=== PATIENT | male | born 1975 ===

== ENCOUNTER 2017-04-30 20:22 | Emergency (ER) | payer MEDICAID ==
[2017-04-30 20:23] VITALS: BMI 29.6
[2017-04-30 20:29] VITALS: TEMP 98.2
[2017-04-30] MEDS ORDERED: Lidocaine 5% Patch TD STA (20:47)
[2017-04-30] MEDS ORDERED: Oxycodone/Acetaminophen 5/325 mg Tab PO STA (20:47)
--- NOTE | 2017-04-30 20:51 | ED PDOC ---
Arrival/HPI - General Chief Complaint: Back Pain Time Seen by Provider: 04/30/17 20:39 Historian: Patient - History of Present Illness Narrative History of Present Illness (Text): 04/30/17 20:48 41 y /o male, pmh including chronic neck and back pain with Disc bulging at L2L3 , nkda, c/o lower back pain started again yesterday and here for the pain management. Pt. stated that he suffers from chronic neck and back pain, no new injury or fall, started to have pain yesterday, no pain medication taken at home , scheduled to see the neurologist next week but can not be seen today, seen at the ER 11/[address] thoracic and lumbar spine show mild disc bulge L2L3 but didn't have any specialist follow up, no urinary or bowel incontinence retention , no urinary symptoms, no other medical or psychological complaints. Past Medical History - Provider Review Nursing Documentation Reviewed: Yes - Infectious Disease Hx of Infectious Diseases: None - Tetanus Immunization Tetanus Immunization: Up to Date (less than 1 yrs ago) - Past Medical History Past Medical History: No Previous - Cardiac Hx Hypertension: No Hx Pacemaker: No - Pulmonary Hx Asthma: No Hx Chronic Obstructive Pulmonary Disease (COPD): No Hx Emphysema: No - Neurological Hx Dementia: No Hx Seizures: No - HEENT Hx HEENT Disorder: No - Renal Hx Renal Disorder: No - Endocrine/Metabolic Hx Endocrine Disorders: No - Hematological/Oncological Hx Anemia: No - Integumentary Hx Dermatological Disorder: No - Musculoskeletal/Rheumatological Hx Musculoskeletal Disorders: No - Gastrointestinal Hx Gastrointestinal Disorders: No - Genitourinary/Gynecological Hx Genitourinary Disorders: No - Psychiatric Hx Depression: No Hx Substance Use: No - Past Surgical History Past Surgical History: No Previous - Surgical History Hx Gastric Bypass Surgery: No - Anesthesia Hx Anesthesia: No Hx Anesthesia Reactions: No Hx Malignant Hyperthermia: No - Suicidal Assessment Feels Threatened In Home Enviroment: No Family/Social History - Physician Review Nursing Documentation Reviewed: Yes Family/Social History: Unknown Family HX Smoking Status: Never Smoked Hx Alcohol Use: No Hx Substance Use: No Hx Substance Use Treatment: No Allergies/Home Meds Allergies/Adverse Reactions: Allergies No Known Allergies Allergy (Verified 12/20/16 16:24) Review of Systems - Review of Systems Constitutional: absent: Fatigue, Fevers Eyes: absent: Vision Changes ENT: absent: Hearing Changes Respiratory: absent: SOB, Cough Cardiovascular: absent: Chest Pain Gastrointestinal: absent: Abdominal Pain, Nausea, Vomiting Musculoskeletal: Back Pain. absent: Arthralgias, Neck Pain, Joint Swelling, Myalgias Neurological: absent: Headache, Dizziness, Focal Weakness, Gait Changes, Speech Changes, Facial Droop Physical Exam Vital Signs Reviewed: Yes Vital Signs Temp Pulse Resp BP Pulse Ox 04/30/17 21:31 72 16 142/87 100 04/30/17 20:24 98.2 F 99 H 18 158/90 H 98 Temperature: Afebrile Blood Pressure: Hypertensive Pulse: Regular Respiratory Rate: Normal Appearance: Positive for: Well-Appearing, Non-Toxic Pain Distress: Severe Mental Status: Positive for: Alert and Oriented X 3 - Systems Exam Head: Present: Atraumatic, Normocephalic Pupils: Present: PERRL Extroacular Muscles: Present: EOMI Conjunctiva: Present: Normal Mouth: Present: Moist Mucous Membranes Neck: Present: Normal Range of Motion. No: Meningeal Signs, MIDLINE TENDERNESS , Paraspinal Tenderness Respiratory/Chest: Present: Clear to Auscultation, Good Air Exchange. No: Respiratory Distress, Accessory Muscle Use Cardiovascular: Present: Regular Rate and Rhythm, Normal S1, S2. No: Murmurs Abdomen: Present: Normal Bowel Sounds. No: Tenderness, Distention, Peritoneal Signs Back: Present: Normal Inspection, Other (Thoracic to LS spine: no midline tenderness or step off, no paraspinal tenderness, FROM without limitation, walking with normal gait and posture, no focal neurological deficits, bilateral lower extremities motor 5/5. ) Upper Extremity: Present: Normal Inspection, Other (bilateral upper extremities motor 5/5, sensation intact. ). No: Cyanosis, Edema Lower Extremity: Present: Normal Inspection. No: Edema Neurological: Present: GCS=15, CN II-XII Intact, Speech Normal Skin: Present: Warm, Dry, Normal Color. No: Rashes Psychiatric: Present: Alert, Oriented x 3, Normal Insight, Normal Concentration Medical Decision Making ED Course and Treatment: 04/30/17 20:51 -Toradol/flexeril/percocet and lidoderm patch -There is no emergent indication of the labs/radiology studies. 04/30/17 21:59 -Pt. stated that he feels better, wants to go home without further evaluation as he will see his own specialist and pmd. -Discharge home with mobic, flexeril, lidoderm, heat compression, follow up with your own pmd and specialist within2 days, return to the ER for any new or worsening signs or symptoms. - Medication Orders Current Medication Orders: Discontinued Medications Cyclobenzaprine HCl (Flexeril) 10 mg PO STAT STA Stop: 04/30/17 20:48 Last Admin: 04/30/17 21:39 Dose: 10 mg Ketorolac Tromethamine (Toradol) 60 mg IM STAT STA Stop: 04/30/17 20:48 Last Admin: 04/30/17 21:39 Dose: 60 mg Lidocaine (Lidoderm) 1 ea TD STAT STA Stop: 04/30/17 20:48 Last Admin: 04/30/17 21:39 Dose: 1 ea Oxycodone/Acetaminophen (Percocet 5/325 Mg Tab) 1 tab PO STAT STA Stop: 04/30/17 20:48 Last Admin: 04/30/17 21:39 Dose: 1 tab - PA / GEOSPATIAL IMAGERY INTELLIGENCE ANALYST / Resident Statement / has reviewed & agrees with the documentation as recorded. Disposition/Present on Arrival - Present on Arrival Any Indicators Present on Arrival: No History of DVT/PE: No History of Uncontrolled Diabetes: No Urinary Catheter: No History of Decub. Ulcer: No History Surgical Site Infection Following: None - Disposition Have Diagnosis and Disposition been Completed?: Yes Diagnosis: Chronic back pain Disposition: HOME/ ROUTINE Disposition Time: 22:00 Patient Plan: Discharge Condition: IMPROVED Additional Instructions: Discharge home with mobic, flexeril, lidoderm, heat compression, follow up with your own pmd and specialist within2 days, return to the ER for any new or worsening signs or symptoms. Prescriptions: Cyclobenzaprine [Cyclobenzaprine HCl] 10 mg PO TID PRN #21 tab PRN Reason: Other Lidocaine 5% [Lidoderm] 1 patch TOP DAILY PRN #14 patch PRN Reason: Other Meloxicam [Mobic] 15 mg PO DAILY PRN #14 tab PRN Reason: Other Referrals: Luna Zamora DO [Primary Care Provider] - Follow up with primary Jacek Read MD [Staff Provider] - Follow up with primary Logan Jeff MD [Staff Provider] - Follow up with primary Martínez Grimm MD [Staff Provider] - Follow up with primary Forms: WORK NOTE
[2017-04-30 21:32] VITALS: BP 142/87; PULSE 72; RESP 16; O2SAT 100
== END 2017-04-30 22:17 | disposition home or self-care (01) ==
LOC: ED 20:22
DX: M54.9 Dorsalgia, unspecified (principal); G89.29 Other chronic pain
CPT/HCPCS: 96372; 99283; J1885

== ENCOUNTER 2017-05-21 19:38 | Emergency (ER) | payer MEDICAID ==
[2017-05-21 19:47] VITALS: BMI 29.2
[2017-05-21 19:52] VITALS: TEMP 97.8
[2017-05-21] MEDS ORDERED: TraMADol/Apap 37.5/325 mg Tab PO STA (20:53)
--- NOTE | 2017-05-21 20:57 | ED PDOC ---
Arrival/HPI - General Chief Complaint: Pain, Chronic Time Seen by Provider: 05/21/17 19:52 Historian: Patient - History of Present Illness Narrative History of Present Illness (Text): 05/21/17 20:00 A 41 year old male, whose past medical history includes L2-L3 lumbar disc disease, presents to the emergency department complaining of back pain which is consistent with chronic back pain. Patient states over the past one month he has been feeling intermittent numbness and tingling to the 3rd, 4th, and 5th right toes. Patient also complains of right wrist and right elbow pain with numbness and tingling down to the hand for the past 1 month. Patient notes he has an appoint with his neurologist pn 06/04/17. Patient denies any new trauma, bowel/urinary incontinence, abdominal pain, nausea, vomiting or any other complaints at this time. PMD: Dr. Zamora Time/Duration: Other (1 month) Symptom Onset: Other Symptom Course: Intermittent Quality: Other Activities at Onset: Rest Context: Home Past Medical History - Provider Review Nursing Documentation Reviewed: Yes - Infectious Disease Hx of Infectious Diseases: None - Tetanus Immunization Tetanus Immunization: Up to Date (less than 1 yrs ago) - Past Medical History Past Medical History: No Previous - Cardiac Hx Cardiac Disorders: No Hx Hypertension: No Hx Pacemaker: No - Pulmonary Hx Asthma: No Hx Chronic Obstructive Pulmonary Disease (COPD): No Hx Emphysema: No - Neurological Hx Dementia: No Hx Seizures: No - HEENT Hx HEENT Disorder: No - Renal Hx Renal Disorder: No - Endocrine/Metabolic Hx Endocrine Disorders: No - Hematological/Oncological Hx Anemia: No - Integumentary Hx Dermatological Disorder: No - Musculoskeletal/Rheumatological Hx Musculoskeletal Disorders: No - Gastrointestinal Hx Gastrointestinal Disorders: No - Genitourinary/Gynecological Hx Genitourinary Disorders: No - Psychiatric Hx Psychophysiologic Disorder: Yes Hx Anxiety: Yes Hx Depression: Yes Hx Substance Use: No - Past Surgical History Past Surgical History: No Previous - Surgical History Hx Gastric Bypass Surgery: No - Anesthesia Hx Anesthesia: No Hx Anesthesia Reactions: No Hx Malignant Hyperthermia: No - Suicidal Assessment Feels Threatened In Home Enviroment: No Family/Social History - Physician Review Nursing Documentation Reviewed: Yes Family/Social History: Unknown Family HX Smoking Status: Never Smoked Hx Alcohol Use: No Hx Substance Use: No Hx Substance Use Treatment: No Allergies/Home Meds Allergies/Adverse Reactions: Allergies No Known Allergies Allergy (Verified 05/21/17 19:47) Home Medications: Home Meds Medication Instructions Recorded Confirmed Escitalopram [Lexapro] 10 mg PO DAILY 05/21/17 05/21/17 QUEtiapine [SEROquel] 300 mg PO HS 05/21/17 05/21/17 buPROPion [Wellbutrin] 300 mg PO DAILY 05/21/17 05/21/17 busPIRone [Buspar] 10 mg PO TID 05/21/17 05/21/17 hydrOXYzine Pamoate [Vistaril] 50 mg PO HS 05/21/17 05/21/17 Review of Systems - Review of Systems Constitutional: absent: Fevers Gastrointestinal: absent: Abdominal Pain, Nausea, Vomiting Genitourinary Male: absent: Dysuria Musculoskeletal: Back Pain Neurological: Other (numbness and tingle to the right 3rd and 4th toe; numbness and tingle with pain to the rigth elbow down to the right hand) Physical Exam Vital Signs Reviewed: Yes Vital Signs Temp Pulse Resp BP Pulse Ox 05/21/17 19:51 97.8 F 111 H 22 141/91 H 98 Temperature: Afebrile Blood Pressure: Hypertensive Pulse: Tachycardic Respiratory Rate: Normal Appearance: Positive for: Well-Appearing, Non-Toxic, Comfortable Pain Distress: None Mental Status: Positive for: Alert and Oriented X 3 - Systems Exam Head: Present: Atraumatic, Normocephalic Mouth: Present: Moist Mucous Membranes Neck: Present: Normal Range of Motion Respiratory/Chest: Present: Clear to Auscultation, Good Air Exchange. No: Respiratory Distress, Accessory Muscle Use Cardiovascular: Present: Normal S1, S2, Tachycardic. No: Murmurs Abdomen: Present: Normal Bowel Sounds. No: Tenderness, Distention, Peritoneal Signs Back: Present: Normal Inspection. No: CVA Tenderness, Midline Tenderness, Paraspinal Tenderness Upper Extremity: Present: Normal Inspection, Normal ROM, NORMAL PULSES, Tenderness (mild tenderness to the right elbow posteriorly and dorsum of right wrist), Neurovascularly Intact. No: Cyanosis, Edema Lower Extremity: Present: NORMAL PULSES. No: Edema Neurological: Present: GCS=15, CN II-XII Intact, Speech Normal, Motor Func Grossly Intact, Normal Sensory Function, Gait Normal Skin: Present: Warm, Dry, Normal Color. No: Rashes Psychiatric: Present: Alert, Oriented x 3, Normal Insight, Normal Concentration Medical Decision Making ED Course and Treatment: 05/21/17 20:00 Impression: A 41 year old male with numbness/tingling sensation to the 3rd and 4th right toe. Patient also with pain, numbness and tingling to the right elbow down to the right hand. Differential Diagnosis include but are not limited to: elbow/wrist pain r/o elbow sprain vs. carpal tunnel vs. cervical radiculopathy; back pain r/o lumbar disease disease vs. muscle spasm Plan: -- Right elbow x-ray -- Right wrist x-ray -- Toradol and Ultracet -- Reassess and disposition Progress Notes: 05/21/17 21:51 XR R elbow and R wrist: no acute findings. Patient with noted history. Will place in right wrist splint for possible carpal tunnel. Given history of back pain, the parasthesias in the 3 right toes are likely due to the lumar radiculopathy; he has no bowel/bladder incontinence or any grave symptoms. Patient already has neurology appointment, so will d/c on nsaid, muscle relaxant, and pain medication. - RAD Interpretation Radiology Orders: 05/21/17 20:53 ELBOW RIGHT 3 VIEWS ROUTINE [RAD] Stat 05/21/17 20:54 WRIST, RIGHT 3 VIEWS [RAD] Stat - Medication Orders Current Medication Orders: Discontinued Medications Ketorolac Tromethamine (Toradol) 60 mg IM STAT STA Stop: 05/21/17 20:54 Tramadol/Acetaminophen (Ultracet 37.5/325 Mg) 2 tab PO STAT STA Stop: 05/21/17 20:54 - Scribe Statement The provider has reviewed the documentation as recorded by the Rohit Agudelo Provider Scribe Attestation: All medical record entries made by the Ivonibmalinda were at my direction and personally dictated by me. I have reviewed the chart and agree that the record accurately reflects my personal performance of the history, physical exam, medical decision making, and the department course for this patient. I have also personally directed, reviewed, and agree with the discharge instructions and disposition. Disposition/Present on Arrival - Present on Arrival Any Indicators Present on Arrival: No History of DVT/PE: No History of Uncontrolled Diabetes: No Urinary Catheter: No History of Decub. Ulcer: No History Surgical Site Infection Following: None - Disposition Have Diagnosis and Disposition been Completed?: Yes Diagnosis: Right arm pain, Low back pain Disposition: HOME/ ROUTINE Disposition Time: 21:50 Patient Plan: Discharge Condition: GOOD Discharge Instructions (ExitCare): Lumbar Radiculopathy (ED) Additional Instructions: Take the medications as prescribed. Follow up with your neurology appointment as scheduled as well as Dr. Zamora. Return to the emergency department if any new concerning symptoms. Prescriptions: Baclofen [Lioresal] 1 tab PO TID PRN #15 tab PRN Reason: Pain, Moderate (4-7) Naproxen [Naprosyn] 500 mg PO BID PRN #20 tab PRN Reason: Pain Tramadol HCl/Acetaminophen [Ultracet Tablet] 1 - 2 tab PO Q8H PRN #15 tablet PRN Reason: Pain, Severe (8-10) Referrals: Luna Zamora DO [Primary Care Provider] - Follow up with primary
[2017-05-21 23:23] VITALS: BP 134/72; PULSE 87; RESP 18; O2SAT 99
--- NOTE | 2017-05-22 07:22 | RAD ---
PROCEDURE: Radiographs of the right elbow. HISTORY: R elbow pain COMPARISON: No prior. FINDINGS: BONES: Normal. No fracture. JOINTS: Normal. No osteoarthritis. SOFT TISSUES: Normal. JOINT EFFUSION: None. OTHER FINDINGS: None. IMPRESSION: Unremarkable radiographs of the right elbow.
--- NOTE | 2017-05-22 07:23 | RAD ---
PROCEDURE: Right Wrist Radiographs. HISTORY: R elbow and wrist pain COMPARISON: None. FINDINGS: BONES: Normal. No fracture. JOINTS: Normal. No dislocation. SOFT TISSUES: Normal. OTHER FINDINGS: None. IMPRESSION: Normal right wrist radiographs.
== END 2017-05-21 22:20 | disposition home or self-care (01) ==
LOC: ED 19:38
DX: M79.601 Pain in right arm (principal); M54.5 Low back pain
CPT/HCPCS: 73080; 73110; 96372; 99283; J1885